=== PATIENT | male | born 2000 | race African-American/Black ===

== ENCOUNTER 2025-01-09 13:26 | Emergency (ER) | payer SELFPAY ==
[2025-01-09 13:36] VITALS: BP 129/74; PULSE 89; TEMP 37.4; O2SAT 96; BMI 20.1
--- NOTE | 2025-01-09 13:54 | ED.GENADUL1 ---
HPI HPI - General Adult General Chief complaint: Abdominal Pain Stated complaint: BACK/ABDOMINAL PAIN Time Seen by Provider: 01/09/25 13:44 Source: patient Mode of arrival: walk-in History of Present Illness HPI narrative: 24-year-old male presents for abdominal and back pain. It started about 2:00 in the morning and he seems to be pointing to his left flank area to indicate where most of the pain is. It seems to go towards his left groin as well but he is also complaining of some pain in the right lower back as well. No injury or unusual activity. No dysuria or hematuria or fever or trauma. No constipation or diarrhea. Related Data Home Medications ?Medication ?Instructions ?Recorded ?Confirmed No Known Home Medications 01/09/25 01/09/25 Allergies Allergy/AdvReac Type Severity Reaction Status Date / Time No Known Drug Allergies Allergy Verified 01/09/25 13:35 Review of Systems ROS Narrative A ten point review of systems is negative except as noted above. PFSH PFSH Social History Little interest or pleasure in doing things: not at all Feeling down, depressed, or hopeless: not at all Exam Narrative Exam Narrative: Nurses note and vital signs reviewed and patient is not hypoxic. General: The patient appears well and in no apparent distress. Patient is resting comfortably on cart. Skin: Warm, dry, no pallor noted. There is no rash noted. Head: Normocephalic, atraumatic Eye: Normal conjunctiva, no drainage Ears, Nose, Mouth, and Throat: oral mucosa is moist. Nares patent. Cardiovascular: Regular Rate and Rhythm Respiratory: Patient is in no distress, no accessory muscle use, lungs are clear to auscultation, no wheezing, rales or rhonchi Back: non-tender, no CVA tenderness bilaterally to percussion. No bruise or rash. GI: Soft and no tenderness on palpation. No distention or masses. Musculoskeletal: The patient has no evidence of calf tenderness, no pitting edema, symmetrical pulses noted bilaterally Neurological: A&O, normal speech Psychiatric: Cooperative Constitutional Vital Signs, click to edit/add: Last Vital Signs Temp 99.3 F 01/09/25 13:36 Pulse 89 01/09/25 13:36 Resp 16 01/09/25 13:36 BP 129/74 01/09/25 13:36 Pulse Ox 96 01/09/25 13:36 O2 Del Method Room Air 01/09/25 13:36 Course Vital Signs Vital signs: Vital Signs Temperature 99.3 F 01/09/25 13:36 Pulse Rate 89 01/09/25 13:36 Respiratory Rate 16 01/09/25 13:36 Blood Pressure 129/74 01/09/25 13:36 Pulse Oximetry 96 01/09/25 13:36 Oxygen Delivery Method Room Air 01/09/25 13:36 Temperature 99.3 F 01/09/25 13:36 Pulse Rate 89 01/09/25 13:36 Respiratory Rate 16 01/09/25 13:36 Blood Pressure 129/74 01/09/25 13:36 Pulse Oximetry 96 01/09/25 13:36 Oxygen Delivery Method Room Air 01/09/25 13:36 Medical Decision Making MDM Narrative Medical decision making narrative: Workup including blood work, urinalysis, and CT of the abdomen is negative. No evidence of appendicitis or constipation or other acute intra-abdominal pathology. He is discharged home. Treatment diagnosis and follow-up were discussed with the patient. Differential Diagnosis Differential Diagnosis: Kidney stone, UTI, diverticulitis, colitis, appendicitis, muscle pain Lab Data Lab results reviewed: Yes I reviewed the patient's lab results Labs: Lab Results 01/09/25 01/09/25 Range/Units 13:55 14:35 WBC 5.7 (4.0-11.0) 10^3/uL RBC 4.85 (4.70-6.10) 10^6/uL Hgb 15.1 (14.0-18.0) g/dL Hct 42.9 (42.0-54.0) % MCV 88.5 (80.0-94.0) fL MCH 31.1 (25.9-34.0) pg MCHC 35.2 (29.9-35.2) g/dL RDW 12.0 (11.0-15.0) % Plt Count 168 (150-450) 10^3/uL MPV 10.0 (9.5-13.5) fL Seg Neuts % (Manual) 74.0 (43.0-75.0) Lymphocytes % (Manual) 9.0 L (20.5-60.0) % Monocytes % (Manual) 16.0 H (1.7-12.0) % Eosinophils % (Manual) 0.0 L (0.9-7.0) % Basophils % (Manual) 1.0 (0.2-2.0) % Neutrophils # (Manual) 4.21 (1.4-6.5) 10^3/uL Lymphocytes # (Manual) 0.51 L (1.20-3.80) 10^3/uL Monocytes # (Manual) 0.91 H (0.30-0.80) 10^3/uL Eosinophils # (Manual) 0.00 (0.00-0.70) 10^3/uL Basophils # (Manual) 0.05 (0.00-0.10) 10^3/uL Sodium 138 (136-145) mmol/L Potassium 3.2 L (3.5-5.1) mmol/L Chloride 100 (98-107) mmol/L Carbon Dioxide 25.9 (21.0-32.0) mmol/L Anion Gap 15.3 BUN 12.0 (7.0-18.0) mg/dL Creatinine 0.98 (0.70-1.30) mg/dL Est GFR ( Amer) >60 (>=60 mL/min/1.73m^2) Est GFR (Non-Af Amer) >60 (>=60 mL/min/1.73m^2) BUN/Creatinine Ratio 12.2 Glucose 103 (74-106) mg/dL Calcium 9.2 (8.5-10.1) mg/dL Urine Color Yellow (YELLOW) Urine Clarity Clear (CLEAR) Urine pH 6.5 (5.0-9.0) Ur Specific [place] 1.020 (1.005-1.025) Urine Protein Trace (NEG/TRACE) mg/dL Urine Glucose (UA) Negative (NEGATIVE) mg/dL Urine Ketones 40 A (NEGATIVE) mg/dL Urine Occult Blood Negative (NEGATIVE) Urine Nitrite Negative (NEGATIVE) Urine Bilirubin Small A (NEGATIVE) Urine Urobilinogen 4.0 A (0.2-1.0) EU/dL Ur Leukocyte Esterase Negative (NEGATIVE) Urine RBC 0-2 (0-2) #/HPF Urine WBC 0-2 A (NONE SEEN) #/HPF Ur Squamous Epith Cells Rare (NONE/RARE) #/LPF Urine Crystals None seen (None Seen) #/HPF Urine Bacteria Trace A (NONE SEEN) #/HPF Urine Casts None seen (NONE SEEN) #/LPF Urine Mucus Small A (NONE SEEN) Imaging Data CT scan - abdomen: Radiologist's impression: ITS Impressions Abdomen/Pelvis CT 01/09/25 14:55 IMPRESSION: Urinary bladder wall thickening. Underdistention versus cystitis. No obstructive uropathy. No nephrolithiasis. Impression dictated by: Jann Ellison M.D. 01/09/2025 4:17 PM Dictation Location: [facility] Electronically authenticated by: [id number] Y Date: 01/09/2025 16:17 Discharge Plan Discharge Chief Complaint: Abdominal Pain Clinical Impression: Abdominal pain Patient Disposition: Home, Self-Care Time of Disposition Decision: 16:30 Condition: Good Mode of Transportation: Private Vehicle Prescriptions / Home Meds: No Action No Known Home Medications Print Language: [place] Instructions: Abdominal Pain (ED) Referrals: Physician,Non-Staff, MD [Primary Care Provider] - 1 week
[2025-01-09 14:15] LABS: Hematocrit 42.9 % (42.0-54.0); Hemoglobin 15.1 g/dL (14.0-18.0); Mean Corpuscular HGB Conc 35.2 g/dL (29.9-35.2); Mean Corpuscular Hemoglobin 31.1 pg (25.9-34.0); Mean Corpuscular Volume 88.5 fL (80.0-94.0); Platelet Count 168 10^3/uL (150-450); Red Blood Count 4.85 10^6/uL (4.70-6.10); White Blood Count 5.7 10^3/uL (4.0-11.0)
[2025-01-09 14:28] LABS: Anion Gap 15.3; Blood Urea Nitrogen 12.0 mg/dL (7.0-18.0); Calcium 9.2 mg/dL (8.5-10.1); Carbon Dioxide 25.9 mmol/L (21.0-32.0); Chloride 100 mmol/L (98-107); Estimated GFR (African America >60 (>=60 mL/min/1.73m^2); Estimated GFR (Non-African Ame >60 (>=60 mL/min/1.73m^2); Glucose 103 mg/dL (74-106); Potassium 3.2 mmol/L (3.5-5.1); Sodium 138 mmol/L (136-145)
[2025-01-09 14:42] LABS: Basophils Abs Manual 0.05 10^3/uL (0.00-0.10); Basophils Percent Manual 1.0 % (0.2-2.0); Eosinophils Absolute Manual 0.00 10^3/uL (0.00-0.70); Eosinophils Percent Manual 0.0 % (0.9-7.0); Lymphocytes Absolute Manual 0.51 10^3/uL (1.20-3.80); Lymphocytes Percent Manual 9.0 % (20.5-60.0); Monocytes Absolute Manual 0.91 10^3/uL (0.30-0.80); Monocytes Percent Manual 16.0 % (1.7-12.0); Segmented Neut Absolute Manual 4.21 10^3/uL (1.4-6.5); Segmented Neutrophils % Manual 74.0 (43.0-75.0)
[2025-01-09 14:45] LABS: Glucose Urine UA NEGATIVE (NEGATIVE)
[2025-01-09 14:54] LABS: Cast Seen? NONE SEEN #/LPF (NONE SEEN); Crystals Seen? None Seen #/HPF (None Seen)
--- NOTE | 2025-01-09 14:55 | CT_ITS ---
The [address] [address] Patient Name: KONSTANTIN CARPENTER MRN: [id number] date: 2000 Sex: M Assigned Patient Location: ER Current Patient Location: ER Accession/Order Number: [id number] Exam Date: 01/09/2025 16:06 Report Date: 01/09/2025 16:17 At the request of: OANH CRAIN MD Procedure: CT abdomen pelvis w con CT Abdomen and Pelvis withcontrast TECHNIQUE: Axial imaging with 2-D reconstruction.100 cc of Omnipaque 300. The CT exam was performed using one or more the following dose reduction techniques: Automated exposure control, adjustment of the MA and/or Kv according to patient size, or use of the iterative reconstruction technique. COMPARISON: None History: Acute lower back pain. Lower abdominal pain. One day duration. LIMITATIONS: None LOWER THORAX Unremarkable LIVER: Unremarkable GALLBLADDER: No gallbladder abnormality identified. BILE DUCTS: No dilatation SPLEEN: Unremarkable PANCREAS: Unremarkable ADRENAL GLANDS: Unremarkable KIDNEYS:Unremarkable AORTA: No abdominal aortic aneurysm identified. RETROPERITONEUM: No significant retroperitoneal abnormalities identified. MESENTERY:Unremarkable STOMACH:Unremarkable SMALL BOWEL: The small bowel loops are nondistended. APPENDIX: The appendix is normal. COLON: Unremarkable URINARY BLADDER: Urinary bladder wall thickening. Underdistention versus cystitis. REPRODUCTIVE SYSTEM: Reproductive structures are unremarkable. PNEUMOPERITONEUM: None PERITONEAL FLUID:Minimal pelvic ascites BONY STRUCTURES: Unremarkable ABDOMINAL WALL: Unremarkable CT/CT abdomen pelvis w con IMPRESSION: Urinary bladder wall thickening. Underdistention versus cystitis. No obstructive uropathy. No nephrolithiasis. Impression dictated by: Jann Ellison M.D. 01/09/2025 4:17 PM Dictation Location: [place] [address] Electronically authenticated by: [id number] Y Date: 01/09/2025 16:17
== END 2025-01-09 16:42 | disposition home or self-care (01) ==
PROVIDERS: Emergency Provider Emergency Medicine
DX: R10.84 Generalized abdominal pain (principal); R10.32 Left lower quadrant pain; M54.50 Low back pain, unspecified
CPT/HCPCS: 36415; 74177; 80048; 81001; 85007; 85027; 99285; Q9967